=== PATIENT | female | born 1955 | race Two or more races ===

== ENCOUNTER → 2018-12-16 12:30 | Outpatient (CLI) | payer OTHER | END | disposition home or self-care (01) | LOC: D.MAMMO 12:30 | PROVIDERS: ATTEND Family Medicine | DX: Z12.31 Encounter for screening mammogram for malignant neoplasm of breast (principal) ==

== ENCOUNTER → 2019-01-04 10:09 | Outpatient (CLI) | payer OTHER ==
--- NOTE | 2019-01-06 12:08 | ST ---
PATIENT:LUZ LIAO MEDICAL RECORD: [id number] SEX: F LOCATION:[facility] ORDER #: ADMISSION DATE: 01/04/19 AGE OF PATIENT: 63 REFERRING PHYSICIAN: INTERPRETING PHYSICIAN: ANICETO WISEMAN MD DATE OF SERVICE: 01/04/2019 PROCEDURE: Nuclear stress test. INDICATION: Shortness of breath, abnormal ECG, hypertension. TECHNIQUE: She was exercised on standard Lexiscan protocol with 28 mCi of sestamibi injected at peak stress, 9 mCi used previously for rest images. FINDINGS: Gated SPECT reveals preserved ejection fraction at 58% with good wall motion and thickening and brightening throughout all segments. SPECT imaging Cardiolite was used as myocardial fusion agent. There is homogeneous uptake throughout all segments at rest and stress with no evidence of inducible ischemia or previous infarction. OVERALL IMPRESSION: 1. This is a normal nuclear stress test with no evidence of inducible ischemia or previous infarction. 2. Gated SPECT reveals a preserved ejection fraction at 58%. In this patient with ongoing symptomatology, the current scan does not suggest the presence of hemodynamically significant coronary artery disease. Evaluate noncardiac etiology of chest pain. TRANSINT:[id number] Voice Confirmation ID: [id number] DOCUMENT ID: [id number] CC: Dr. Cristin Kent, unknown. ANICETO WISEMAN MD at 1208 CC: [id number] DICTATION DATE: 01/05/19 1332 AIR VICE MARSHAL: 01/06/19 0748 [facility] CLI 01/04/19 [place] [id number]
--- NOTE | 2019-01-06 12:40 | EC ---
PATIENT:LUZ LIAO DATE OF SERVICE: 01/04/19 SEX: F MEDICAL RECORD: [id number] DATE OF : 51 [facility] AGE OF PATIENT: 63 ADMISSION DATE: 01/04/19 REFERRING PHYSICIAN: INTERPRETING PHYSICIAN: TAMELA ARORA MD ECHOCARDIOGRAM REPORT ECHO CHARGES 4 ECHO COMPLETE Date: 01/04/19 CLINICAL DIAGNOSIS: HEART MURMUR ECHOCARDIOGRAPHIC MEASUREMENTS (adult normal given) AC root (d.<3.7cm) 3.3 cm LV Septum d (<1.2 cm> 1.3 cm Valve Excursion 1.8 cm LV Septum (systole) 1.6 cm Left Atria (s.<4.0cm> 4.0 cm LVPW d(<1.2cm) 1.4 cm RV (d.<2.3cm) 3.8 cm LVPW (sytole) 1.7 cm LV diastole(<5.6CM) 5.1 cm MV E-F(>70mm/sec) cm LV systole 3.7 cm LVOT Diameter 1.8 cm MV exc.(>10mm) 1.8 cm Est.ejection fraction (50-75%) % DOPPLER: LVIT cm/sec A 98.0 cm/sec E 79.0 cm/sec LA cm/sec RVSP 32 mmHg LVOT 130 cm/sec AOP1/2T m/s Asc. Ao 158 cm/sec RVOT 104 cm/sec RA cm/sec PA 135 cm/sec AV Gradient Peak 9.93 mmHg AV Mean 5.54 mmHg AV Area 2.2 cm MV Gradient Peak 5.15 mmHg MV Mean 2.20 mmHg MV Area cm COMMENTS: Cut Plug Packer: 2 LYNDA MCLAUGHLIN Tire Repairer: 3 Dr. Patel TAPE# PACS Pericardial Effusion N DATE OF SERVICE: LVH is present. LV internal dimensions are normal. Wall motion is normal. EF is greater than or equal to 55%. Aortic valve sclerosis without stenosis by Doppler interrogation. Left atrium is normal at 4.8 cm. Mitral valve shows no prolapse. Mild MR. Right sided chambers are grossly normal. Trace TR. TRANSINT:[id number] Voice Confirmation ID: [id number] DOCUMENT ID: [id number] ECHOCARDIOGRAM REPORT [id number] LUZ LIAO TAMELA ARORA MD at 1240 CC: [id number] DICTATION DATE: 01/05/19 1450 ALLERGY AND IMMUNOLOGY SPECIALIST: 01/05/19 2148 [facility] CLI 01/04/19 [place] [id number] [place] [address]
== END | disposition home or self-care (01) ==
LOC: D.HCCECHO 10:09
PROVIDERS: ATTEND Internal Medicine Interventional Cardiology
DX: I20.9 Angina pectoris, unspecified (principal)

== ENCOUNTER 2019-04-21 11:12 | Inpatient (IN) | payer OTHER ==
[2019-04-21] VITALS (47 sets, daily range): BP systolic 107–219; BP diastolic 67–155; Ht 165.1 cm; Wt 99.2 kg
[~2019-04-21] VITALS: Ht 165.1 cm; Wt 99.2 kg
--- NOTE | ~2019-04-21 | CN ---
PATIENT NAME:LUZ CHOU MEDICAL RECORD: [id number] : 51 LOCATION:[facility]7 ADMIT DATE: 04/21/19 ACCOUNT: [id number] CONSULTING PHYSICIAN: ANICETO WISEMAN MD REFERRING PHYSICIAN: TAMELA KHOURY MD DATE OF CONSULTATION: 04/21/2019 CARDIOLOGY CONSULTATION ADMITTING DIAGNOSES: 1. Hypertensive emergency. 2. TIA. 3. Chest pain. 4. Systemic hypertension. 5. Paroxysmal atrial fibrillation. 6. Hyperthyroidism. HISTORY OF PRESENT ILLNESS: Ms. Chou presents with systolic blood pressure in the 240 range with slurred speech and facial numbness and chest pain. She recently was diagnosed hyperthyroid. She has undergone a cardiac workup including stress test with nuclear imaging and echocardiogram, both of which are normal. Her EKG has a left bundle-branch block, but this is not new. Her troponin is normal. Her systolic blood pressure is now in the 140 range and she is having no symptomatology. PHYSICAL EXAMINATION: CONSTITUTIONAL/GENERAL APPEARANCE: Well nourished, well developed, appears stated age. EYES: Lids and conjunctivae noninjected. No discharge. No pallor. ENT: Lips within normal limit. No cyanosis. No pallor. NECK: Carotid arteries, bilateral normal upstroke. No bruits. No thrills. No jugular venous pressure or distention. CERVICAL LYMPH NODES: Nontender. Nonenlarged. THYROID: Not enlarged. No nodules. CARDIOVASCULAR: Precordial exam, nondisplaced. No heaves or pericardial thrills. Rate and rhythm, regular. Heart sounds, normal S1, normal S2. No S3, no gallop, no rub. Systolic murmur, not heard. Diastolic murmur, not heard. RESPIRATORY: Respiratory effort, unlabored. Normal curvature. No thoracic deformity. No chest wall tenderness. Percussion, resonant. Auscultation, clear. No wheezes, no rales, no rhonchi. ABDOMEN: Soft, nondistended, nontender. No abdominal pain, no vomiting and normal appetite. MUSCULOSKELETAL: No joint tenderness, normal gait, normal tone. SKIN: Warm and dry. OVERALL IMPRESSION: Hypertensive urgency. At this time, no other cardiac workup or treatment is necessary. Only aggressively manage the blood pressure medications. TRANSINT:[id number] Voice Confirmation ID: [id number] DOCUMENT ID: [id number] CONSULT REPORT [id number] LUZ CHOU JEFFREY MD CC: [id number] DICTATION DATE: 04/21/19 1334 TOMBSTONE CARVER: 04/21/192037 ADM IN [place] [id number] [place] [id number]
[2019-04-21] MEDS ORDERED: ELIQUIS2.5 MG (11:21)
--- NOTE | 2019-04-21 11:38 | NUR ---
CONTACTED [employer] AT THIS TIME. REPORTS SHE IS NOT A CANDIDATE FOR [employer] EXAM/TPA DUE TO PATIENT'S SYMPTOMS RESOLVING.
--- NOTE | 2019-04-21 11:39 | NUR ---
PT TO CT AT 1108 VIA STRETCHER, ACCOMPANIED BY RN
[2019-04-21 11:40] LABS: BASOPHILS 0.1 % (0-2); EOSINOPHILS 1.8 % (0-7); HEMATOCRIT 41.6 % (36.0-48.0); HEMOGLOBIN 13.6 g/dL (12-16); IMMATURE GRANULOCYTES 0.3 % (0-5); LYMPHOCYTES 26.8 % (15-50); MCHC 32.7 g/dL (31.0-37.0); MCV 82.7 fL (80.0-100.0); MONOCYTES 6.4 % (2-11); NEUTROPHILS 64.6 % (40-80); PLATELET COUNT 324 10x3/uL (130-400); RBC 5.03 10x6/uL (4.00-5.40); RDW 14.9 % (11.5-14.5); WBC 6.8 10x3/uL (4.8-10.8)
[2019-04-21 11:55] LABS: APTT 22.4 SECONDS (22.8-39.4); CALC OSMOLALITY 280 mosm/kg (275-300); CALCIUM 9.5 mg/dL (8.5-10.1); CARBON DIOXIDE 28.2 mmol/L (21.0-32.0); CHLORIDE - SERUM 104 mmol/L (98-107); CREATININE - SERUM 0.7 mg/dL (0.6-1.3); GLUCOSE 121 mg/dL (74-106); INR 0.95 (0.85-1.17); POTASSIUM - SERUM 4.7 mmol/L (3.5-5.1); PROTIME 12.6 SECONDS (11.6-15.0); SODIUM 141 mmol/L (136-145); UREA NITROGEN 10 mg/dL (7-18); eGFR NON AFRICAN AMERICAN 89 mL/min (90-120)
[2019-04-21 12:13] LABS: ALBUMIN 3.7 g/dL (3.4-5.0); ALKALINE PHOSPHATASE 116 U/L (46-116); ALT (SGPT) 58 U/L (10-68); BILIRUBIN - TOTAL 0.37 mg/dL (0.2-1.3); CKMB 0.4 U/L (0.0-3.6); CREATINE KINASE 76 UL (21-215); PROTEIN - SERUM 8.1 g/dL (6.4-8.2); THYROID STIMULATING HORMONE 1.46 uIU/mL (0.36-3.74)
[2019-04-21 12:14] LABS: TROPONIN-I < 0.017 ng/mL (0.000-0.060)
--- NOTE | 2019-04-21 12:30 | NUR ---
UP TO RESTROOM WITHOUT DIFFICULTY. DENIES COMPLAINTS. AT BEDSIDE.
--- NOTE | 2019-04-21 12:30 | NUR ---
REPORT CALLED TO JULIO CÉSAR VALENTINO AT THIS TIME.
[2019-04-21] MEDS ORDERED: CYANOCOBAL1000 MCG/4 IM (12:58)
[2019-04-21] MEDS ORDERED: ELIQUIS5 MG PO (12:59)
[2019-04-21] MEDS ORDERED: ZOLOFT100 MG PO (13:00)
[2019-04-21] MEDS ORDERED: TOPROL XL25 MG PO (13:00)
[2019-04-21] MEDS ORDERED: BETAPACE 80 MG80 MG PO (13:01)
[2019-04-21] MEDS ORDERED: VALTREX1000 MG PO (13:04)
[2019-04-21 17:43] LABS: CKMB 0.3 U/L (0.0-3.6); CREATINE KINASE 42 UL (21-215)
[2019-04-21 17:44] LABS: TROPONIN-I < 0.017 ng/mL (0.000-0.060)
--- NOTE | 2019-04-21 19:30 | NUR ---
PT A/OX4, ASSESSMENT COMPLETED, PT C/O HEADACHE, CALLED DR KHOURY, DR KHOURY HERE TO SEE PT, EXPLAINED HEADACHE R/T MEDICATION PT IS RECIEVING, WILL CONT TO MONITOR
--- NOTE | 2019-04-21 21:30 | NUR ---
PT REMAINS AWAKE, VITALS STABLE, WILL CONT TO MONITOR
--- NOTE | 2019-04-21 23:30 | NUR ---
RESTING QUIETLY, CONT TO WEAN NIPRIDE GTT, VITALS STABLE
[2019-04-22] VITALS (39 sets, daily range): BP systolic 91–164; BP diastolic 60–111
[2019-04-22 00:28] LABS: CKMB 0.2 U/L (0.0-3.6); CREATINE KINASE 42 UL (21-215)
[2019-04-22 00:30] LABS: TROPONIN-I < 0.017 ng/mL (0.000-0.060)
--- NOTE | 2019-04-22 01:00 | NUR ---
PT CONT TO C/O HEADACHE, VITALS STABLE, WEANING NIPRIDE GTT, NO DISTRESS NOTED
--- NOTE | 2019-04-22 03:00 | NUR ---
PT RESTING QUIETLY WITHOUT DISTRESS, UNABLE TO FURTHER WEAN NIPRIDE GTT AT THIS TIME , WILL CONT TO MONITOR
[2019-04-22 04:46] LABS: BASOPHILS 0.1 % (0-2); EOSINOPHILS 1.2 % (0-7); HEMATOCRIT 38.3 % (36.0-48.0); HEMOGLOBIN 12.3 g/dL (12-16); IMMATURE GRANULOCYTES 0.2 % (0-5); LYMPHOCYTES 23.5 % (15-50); MCH 26.6 pg (26.0-34.0); MCHC 32.1 g/dL (31.0-37.0); MCV 82.9 fL (80.0-100.0); MEAN PLATELET VOLUME 9.3 fL (7.4-10.4); MONOCYTES 7.1 % (2-11); NEUTROPHILS 67.9 % (40-80); PLATELET COUNT 316 10x3/uL (130-400); RBC 4.62 10x6/uL (4.00-5.40); RDW 15.2 % (11.5-14.5)
[2019-04-22 04:50] LABS: WBC 8.6 10x3/uL (4.8-10.8)
[2019-04-22 05:01] LABS: ALBUMIN 3.3 g/dL (3.4-5.0); ALKALINE PHOSPHATASE 95 U/L (46-116); ALT (SGPT) 51 U/L (10-68); BILIRUBIN - TOTAL 0.26 mg/dL (0.2-1.3); CALCIUM 9.1 mg/dL (8.5-10.1); CARBON DIOXIDE 29.3 mmol/L (21.0-32.0); CHLORIDE - SERUM 105 mmol/L (98-107); CHOL - HDL RATIO 3.3 ratio (2.3-4.1); CHOLESTEROL, TOTAL 221 mg/dL (0-200); CREATININE - SERUM 0.7 mg/dL (0.6-1.3); GLUCOSE 138 mg/dL (74-106); HDL CHOLESTEROL 67 mg/dL (32-96); LDL CHOLESTEROL 131 mg/dL (0-100); PROTEIN - SERUM 7.1 g/dL (6.4-8.2); SODIUM 141 mmol/L (136-145); TRIGLYCERIDE 117 mg/dL (30-200); eGFR NON AFRICAN AMERICAN 89 mL/min (90-120)
[2019-04-22 05:04] LABS: CALC OSMOLALITY 283 mosm/kg (275-300); POTASSIUM - SERUM 3.9 mmol/L (3.5-5.1); UREA NITROGEN 14 mg/dL (7-18)
--- NOTE | 2019-04-22 05:18 | NUR ---
PT SLEEPING @ THIS TIME, REMAINS ON NIPRIDE GTT, VITALS STABLE
--- NOTE | 2019-04-22 07:00 | NUR ---
COMPLIANTS OF SEVERE HEADACHE SHE CAN NOT SEE HER HEAD IS HURTING HER SO BAD. SKIN WARM AND DRY. NIPRID GTT AT 0.9 MCG. IV WITHOUT REDENSS OR SWELLING.
--- NOTE | 2019-04-22 08:24 | NUR ---
BREAKFAST SERVICE DISCUSS DIABETES WITH PATIENT. ATE FAIR. HERE UPDATE GIVEN. NIPRIDE OFF. HERE NEW ORDERS RECEIVED NEW MEDS STARTED.
--- NOTE | 2019-04-22 09:00 | NUR ---
UP ON SIDE OF BED. BED BATH TAKEN. PO MEDS TAKEN. DR. KHOURY HERE TALKED WITH PATEINT. DIABETIC INFORMATION ABC, DIABETIC DIET GIVEN
--- NOTE | 2019-04-22 11:00 | NUR ---
LUNCH TRAY SERVED. AT BEDSIDE UPDATE GIVEN.
--- NOTE | 2019-04-22 12:30 | NUR ---
DR. KHOURY CALLED NOTIFIED OF LAST 3 BLOOD PRESSURES. ORDERS RECEIVED TO DISCHARGED HOME. STATES HE WILL TRANSMIT NEW BLOOD PRESSURE
[2019-04-22] MEDS ORDERED: BAYER CHEWABLE81 MG PO (12:35)
[2019-04-22] MEDS ORDERED: LIPITOR40 MG PO (12:35)
[2019-04-22] MEDS ORDERED: NORVASC5 MG PO (12:35)
[2019-04-22] MEDS ORDERED: LISINOPRIL-HCT1 EAC7 PO (12:36)
--- NOTE | 2019-04-22 14:30 | NUR ---
PATIENT DISCHARGED HOME WITH INSTRUCTIONS WITH . ALL QUESTIONS ANSWERED
[2019-04-22 14:49] LABS: CKMB 0.4 U/L (0.0-3.6); CREATINE KINASE 38 UL (21-215)
[2019-04-22 14:53] LABS: TROPONIN-I < 0.017 ng/mL (0.000-0.060)
== END 2019-04-22 14:31 | disposition home or self-care (01) | DRG 69 ==
LOC: D.ER 11:12 → D.ICU 12:10
PROVIDERS: Family Medicine; ADMIT Family Medicine; ATTEND Family Medicine
DX: G45.9 Transient cerebral ischemic attack, unspecified (principal); I16.1 Hypertensive emergency; I48.20 Chronic atrial fibrillation, unspecified; R47.01 Aphasia; E11.65 Type 2 diabetes mellitus with hyperglycemia; F41.1 Generalized anxiety disorder; E05.90 Thyrotoxicosis, unspecified without thyrotoxic crisis or storm; I44.7 Left bundle-branch block, unspecified; R47.1 Dysarthria and anarthria

== ENCOUNTER → 2019-05-09 07:00 | Outpatient (CLI) | payer MEDICARE ==
[2019-04-21 13:33] VITALS: BMI 35.0
[~2019-05-09 07:00] MED LIST: BAYER CHEWABLE81 MG PO; BETAPACE 80 MG80 MG PO; CYANOCOBAL1000 MCG/4 IM; ELIQUIS2.5 MG; ELIQUIS5 MG PO; LIPITOR40 MG PO; LISINOPRIL-HCT1 EAC7 PO; NORVASC5 MG PO; TOPROL XL25 MG PO; VALTREX1000 MG PO; ZOLOFT100 MG PO
== END | disposition home or self-care (01) ==
LOC: D.NM 07:00
PROVIDERS: ATTEND Nurse Practitioner Family
DX: E03.9 Hypothyroidism, unspecified (principal)

== ENCOUNTER 2019-07-07 15:45 | Inpatient (IN) | payer MEDICARE ==
[~2019-07-07] VITALS: Ht 165.1 cm; Wt 90.9 kg
[2019-07-07 18:22] LABS: BASOPHILS 0.1 % (0-2); EOSINOPHILS 0.9 % (0-7); HEMATOCRIT 39.5 % (36.0-48.0); HEMOGLOBIN 12.6 g/dL (12-16); IMMATURE GRANULOCYTES 0.3 % (0-5); LYMPHOCYTES 12.9 % (15-50); MCH 28.1 pg (26.0-34.0); MCHC 31.9 g/dL (31.0-37.0); MCV 88.2 fL (80.0-100.0); MONOCYTES 6.3 % (2-11); NEUTROPHILS 79.5 % (40-80); PLATELET COUNT 327 10x3/uL (130-400); RBC 4.48 10x6/uL (4.00-5.40); WBC 10.1 10x3/uL (4.8-10.8)
[2019-07-07 18:34] LABS: CALC OSMOLALITY 279 mosm/kg (275-300); CALCIUM 9.2 mg/dL (8.5-10.1); CARBON DIOXIDE 26.3 mmol/L (21.0-32.0); CHLORIDE - SERUM 103 mmol/L (98-107); CREATININE - SERUM 0.8 mg/dL (0.6-1.3); GLUCOSE 152 mg/dL (74-106); POTASSIUM - SERUM 3.2 mmol/L (3.5-5.1); SODIUM 138 mmol/L (136-145); UREA NITROGEN 14 mg/dL (7-18); eGFR NON AFRICAN AMERICAN 76 mL/min (90-120)
[2019-07-07 18:40] LABS: ALKALINE PHOSPHATASE 104 U/L (30-120); ALT (SGPT) 50 U/L (10-68); BILIRUBIN - TOTAL 0.48 mg/dL (0.2-1.3); PROTEIN - SERUM 7.8 g/dL (6.4-8.2)
[2019-07-07 19:03] LABS: INR 1.03 (0.85-1.17); PROTIME 13.5 SECONDS (11.6-15.0)
[2019-07-07 23:45] VITALS: BP 133/65; BMI 33.3
[2019-07-08 04:00] VITALS: BP 148/78
[2019-07-08 08:24] VITALS: BP 149/83
[2019-07-08 08:37] LABS: MAGNESIUM - SERUM 2.1 mg/dL (1.8-2.4); PHOSPHOROUS 2.8 mg/dL (2.5-4.9)
[2019-07-08 10:58] VITALS: Ht 165.1 cm; Wt 90.9 kg
[2019-07-08 12:54] VITALS: BP 99/69
[2019-07-08 16:47] VITALS: BP 120/66
[2019-07-08 20:00] VITALS: BP 118/70
[2019-07-09 04:00] VITALS: BP 144/62
[2019-07-09 07:13] LABS: CALC OSMOLALITY 284 mosm/kg (275-300); CALCIUM 8.7 mg/dL (8.5-10.1); CARBON DIOXIDE 28.7 mmol/L (21.0-32.0); CHLORIDE - SERUM 107 mmol/L (98-107); CREATININE - SERUM 0.7 mg/dL (0.6-1.3); GLUCOSE 112 mg/dL (74-106); SODIUM 142 mmol/L (136-145); UREA NITROGEN 14 mg/dL (7-18); eGFR NON AFRICAN AMERICAN 89 mL/min (90-120)
[2019-07-09 08:12] LABS: SPECIFIC GRAVITY 1.015 (1.005-1.020)
[2019-07-09 08:13] LABS: BILIRUBIN NEGATIVE (NEGATIVE); GLUCOSE NEGATIVE (NEGATIVE); KETONE NEGATIVE (NEGATIVE); NITRITE NEGATIVE (NEGATIVE); UROBILINOGEN NORMAL (NORMAL)
[2019-07-09 08:17] LABS: BACTERIA FEW /hpf (NEGATIVE); EPITHELIAL CELLS 0-5 /hpf (0-5); RED CELLS - URINE 0-5 /hpf (0-5)
[2019-07-09 08:33] VITALS: BP 108/57
[2019-07-09] MEDS ORDERED: Augmentin 500-125 TA PO (15:17)
--- NOTE | 2019-07-10 08:51 | MORECARE ---
CASE MANAGEMENT DISCHARGE SUMMARY PATIENT: LUZ LIAO UNIT: [id number] ADM DATE: 07/07/19 AGE: 64 : 53 SEX: F ROOM/BED: D.[facility] AUTHOR: KEVON LERNER PHYSICIAN: REFERRING PHYSICIAN: TOM HOLLOWAY MD DATE OF SERVICE: 07/10/19 Discharge Plan Patient Name: LUZ LIAO Facility: [facility]:[place] : 1955 Planned Disposition: Anticipated Discharge Date: Discharge Date: 07/09/2019 Expected LOS: Initial Reviewer: [email or web address] Initial Review Date: 07/07/2019 Generated: 07/10/19 9:50 am Patient Name: LUZ LIAO Page [id number] at 0851 All edits/amendments must be made on the electronic document DICTATION DATE: 07/10/19 0850 PLANT ELECTRICAL ENGINEER: BRENDON 07/10/19 0850 RPT#: [id number] DC DATE:07/09/19 STATUS: DIS IN [facility] [address] [facility] [place] [address] END OF REPORT
--- NOTE | 2019-07-10 09:23 | MORECARE ---
CASE MANAGEMENT DISCHARGE SUMMARY PATIENT: LUZ LIAO UNIT: [id number] ADM DATE: 07/07/19 AGE: 64 : 53 SEX: F ROOM/BED: D.[facility]5 AUTHOR: KEVON LERNER PHYSICIAN: REFERRING PHYSICIAN: TOM HOLLOWAY MD DATE OF SERVICE: 07/10/19 Discharge Plan Patient Name: ULZ LIAO Facility: [facility]:[place] : 1955 Planned Disposition: Anticipated Discharge Date: Discharge Date: 07/09/2019 Expected LOS: Initial Reviewer: [email or web address] Initial Review Date: 07/07/2019 Generated: 07/10/19 10:22 am Last DP export: 07/10/19 7:51 a Patient Name: LUZ LIAO Page [phone] at 0923 All edits/amendments must be made on the electronic document DICTATION DATE: 07/10/19921 FIELD SERVICE ENGINEER: DM 07/10/19921 RPT#: [id number] DC DATE:07/09/19 STATUS: DIS IN [facility] [address] [place] [address] END OF REPORT
== END 2019-07-09 16:51 | disposition home or self-care (01) | DRG 125 ==
LOC: D.ER 15:45 → D.MS 19:35
PROVIDERS: Family Medicine; ADMIT Internal Medicine Nephrology; ATTEND Internal Medicine Nephrology
DX: S02.32XA Fracture of orbital floor, left side, initial encounter for closed fracture (principal); I48.20 Chronic atrial fibrillation, unspecified; N39.0 Urinary tract infection, site not specified; Y93.55 Activity, bike riding; V89.1XXA Person injured in unspecified nonmotor-vehicle accident, nontraffic, initial encounter; E11.9 Type 2 diabetes mellitus without complications; E66.01 Morbid (severe) obesity due to excess calories; Z68.33 Body mass index [BMI] 33.0-33.9, adult; E87.6 Hypokalemia; R91.1 Solitary pulmonary nodule; S05.12XA Contusion of eyeball and orbital tissues, left eye, initial encounter; S00.83XA Contusion of other part of head, initial encounter; I10 Essential (primary) hypertension

== ENCOUNTER 2019-07-23 13:56 | Emergency (ER) | payer MEDICARE ==
[2019-07-08 10:58] VITALS: Ht 165.1 cm
[~2019-07-23 13:56] MED LIST changes: +Augmentin 500-125 TA PO
[2019-07-23 15:55] VITALS: BP 138/78
== END 2019-07-23 15:56 | disposition home or self-care (01) ==
LOC: D.ER 13:56
DX: S02.32XD Fracture of orbital floor, left side, subsequent encounter for fracture with routine healing (principal); I10 Essential (primary) hypertension; E11.9 Type 2 diabetes mellitus without complications; I48.91 Unspecified atrial fibrillation; Z86.73 Personal history of transient ischemic attack (TIA), and cerebral infarction without residual deficits